=== PATIENT | female | born 1990 | race Caucasian/White ===

== ENCOUNTER → 2017-06-04 | Outpatient (CLI) | payer MEDICAID | LOC: BRMIMAGING 16:24 | PROVIDERS: ATTEND Physician Assistant | DX: M25.561 Pain in right knee (principal); S89.91XA Unspecified injury of right lower leg, initial encounter | CPT/HCPCS: 73562-PO ==

== ENCOUNTER → 2018-05-18 | Outpatient (CLI) | payer MEDICAID | LOC: BRMIMAGING 15:28 | PROVIDERS: ATTEND Physician Assistant | DX: M43.06 Spondylolysis, lumbar region (principal) | CPT/HCPCS: 72100-PO ==